=== PATIENT | male | born 2005 | race Caucasian/White ===

== ENCOUNTER 2024-07-28 10:52 | Emergency (ER) | payer OTHER, SELFPAY ==
[2024-07-28 11:02] VITALS: BP 133/76; PULSE 74; RESP 20; TEMP 37.1; O2SAT 99; BMI 21.7
--- NOTE | 2024-07-28 11:30 | ED_ITS ---
HPI - Chest Pain General Chief Complaint: Chest Pain Stated Complaint: Poss PneumoThorax Time Seen by Provider: 07/28/24 11:10 History of Present Illness HPI narrative: This 18-year-old male comes in reporting right-sided chest discomfort since yesterday. He states that he has a history of spontaneous pneumothorax that occurred about 6 months ago and again about 3 or 4 months ago. On the 2nd occasion he did have a chest tube and eventually had a surgery to repair the defect. He does not report any shortness of breath. He comes here with normal vital signs. Related Data Home Medications ?Medication ?Instructions ?Recorded ?Confirmed No Known Home Medications 07/28/24 07/28/24 Allergies Allergy/AdvReac Type Severity Reaction Status Date / Time No Known Drug Allergies Allergy Verified 07/28/24 11:12 Review of Systems Status of ROS Reports: 10 or more systems reviewed and unremarkable except as noted in History and below Narrative Constitutional: No fevers, no weight gain or loss. Eyes: No discharge. No vision changes. HENT: No congestion, no sore throat, no ear pain. Cardiovascular: No palpitations. Respiratory: No shortness of breath, no wheezes, no cough. Gastrointestinal: No abdominal pain, no vomiting, no diarrhea. Genitourinary: No dysuria, no hematuria. Musculoskeletal: Normal range of motion. Skin: No rashes, no pruritis. Neurological: No dizziness, weakness, sensory change, speech change. Endo/Heme/Allergies: No bruising or bleeding. No polydipsia. Pysch: no suicidality, no anxiety, no insomnia. All other systems reviewed and are negative. Exam Narrative Exam Narrative: Constitutional: Well-developed, well-nourished, no acute distress. HEENT: Normocephalic, atraumatic. Neck: Normal range of motion. Nontender. Supple. Heart: Regular. No murmurs. Normal rate. Intact distal pulses. Lungs: Clear to auscultation. No wheezes, rhonchi, or rales. Chest: Diffuse pain in the right anterior chest. Abdomen: Normal bowel sounds. Nontender. No rebound tenderness. Genitalia: Deferred. Back: No midline tenderness. Normal range of motion. Extremities: Normal range of motion. No injury. Skin: Intact. No rash. Warm. No erythema or pallor. Neurologic: No altered sensation. No weakness. Alert and oriented. Psychiatric: No suicidality. No anxiety or depression. No insomnia. Nursing notes and vitals signs are reviewed. Const Vital Signs, click to edit/add: Vital Signs - 24 hr 07/28/24 11:02 Temperature 98.7 F Pulse Rate [Pulse Oximeter] 74 Respiratory Rate 20 Blood Pressure [Left Upper Arm] 133/76 Pulse Oximetry 99 Oxygen Delivery Method Room Air Course Vital Signs Vital signs: Initial Vital Signs Temperature 98.7 F 07/28/24 11:02 Temperature Source Oral 07/28/24 11:02 Pulse Rate 74 07/28/24 11:02 Respiratory Rate 20 07/28/24 11:02 Blood Pressure 133/76 07/28/24 11:02 Blood Pressure Mean 95 07/28/24 11:02 Pulse Oximetry 99 07/28/24 11:02 Oxygen Delivery Method Room Air 07/28/24 11:02 Vital Signs Temperature 98.7 F 07/28/24 11:02 Pulse Rate 74 07/28/24 11:02 Respiratory Rate 20 07/28/24 11:02 Blood Pressure 133/76 07/28/24 11:02 Pulse Oximetry 99 07/28/24 11:02 Oxygen Delivery Method Room Air 07/28/24 11:02 Temperature 98.7 F 07/28/24 11:02 Pulse Rate 74 07/28/24 11:02 Respiratory Rate 20 07/28/24 11:02 Blood Pressure 133/76 07/28/24 11:02 Pulse Oximetry 99 07/28/24 11:02 Oxygen Delivery Method Room Air 07/28/24 11:02 MDM - Chest Pain MDM Narrative Medical decision making narrative: This patient comes in with some discomfort that is mild in his right chest. He comes in because he has a history of left-sided pneumothorax that occurred spontaneously. He does not report any shortness of breath and has not had any recent injury event. He does exercise but does not have any related symptoms. A chest x-ray is obtained and shows no sign of pneumothorax. Patient is okay to be discharged home. I did describe signs and symptoms that would indicate a need for return and re-evaluation. Imaging Data Chest x-ray: Radiologist's impression: No acute findings. Discharge Plan Discharge Clinical Impression: Atypical chest pain Patient Disposition: Home, Self-Care Condition: Stable Additional Instructions: Use [id number] medicines as needed and directed. Follow up with return if worsening. Prescriptions: No Action No Known Home Medications Follow Up/Referrals: Provider,Not a Local [Primary Care Provider] - Stand Alone Forms: [employer] Info Instructions
--- NOTE | 2024-07-28 11:30 | CRLHL7_ITS ---
For Patients: As a result of the Century Cures Act, medical imaging exams and procedure reports are released immediately into your electronic medical record. You may view this report before your referring provider. If you have questions, please contact your health care provider. INDICATION: RIGHT CHEST PAIN; HX OF SPONTANEOUS PNEUMOTHORAX TECHNIQUE: Chest 2 views COMPARISON: None FINDINGS: Cardiovascular and mediastinum: Heart size and vasculature are normal in caliber and appearance. Lungs and pleural spaces: Lungs are clear. No sign of infiltrate or mass. No sign of pleural effusion. No pneumothorax. Bones and soft tissues: No significant findings. IMPRESSION: No acute findings. Dictated by Rob Carson MD @ 07/28/2024 12:06:39 PM (Electronically Signed)
[2024-07-28 13:02] VITALS: BP 133/82; PULSE 66; RESP 16; O2SAT 99
== END 2024-07-28 13:07 | disposition home or self-care (01) ==
PROVIDERS: Emergency Provider Emergency Medicine Emergency Medical Services
DX: R07.89 Other chest pain (principal)
CPT/HCPCS: 71046; 99283; 99284